=== PATIENT | female | born 1955 | race Caucasian/White ===

== ENCOUNTER 2018-11-18 21:03 | Emergency (ER) | payer OTHER ==
[~2018-11-18] VITALS: Ht 149.9 cm; Wt 51.3 kg
[2018-11-18 21:15] VITALS: Ht 149.9 cm; Wt 51.3 kg
[2018-11-18] MEDS ORDERED: IBUP-1542 PO (22:54)
[2018-11-18] MEDS ORDERED: ACET325T33 PO (22:54)
[2018-11-18] MEDS ORDERED: CYCL5TAB PO (22:54)
[2018-11-18] MEDS ORDERED: CYCLOBENZAPRINE 10 MG TAB PO ONE (23:00)
[2018-11-18] MEDS ORDERED: ACETAMINOPHEN 325 MG TAB PO ONE (23:00)
[2018-11-18] MEDS ORDERED: IBUPROFEN 600 MG TAB PO ONE (23:00)
[2018-11-18] MEDS ORDERED: DEXAMETHASONE (1 MG/ML PO SYG) PO ONE (23:00)
[2018-11-18 23:40] VITALS: BP 126/68; PULSE 74; RESP 18
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
== END 2018-11-18 23:40 | disposition home or self-care (01) ==
LOC: FTE 21:03
DX: M62.838 Other muscle spasm (principal); I10 Essential (primary) hypertension; E11.9 Type 2 diabetes mellitus without complications
CPT/HCPCS: Z7502; Z7610; 99283